=== PATIENT | female | born 1960 | race Caucasian/White ===

== ENCOUNTER → 2016-09-06 | Outpatient (CLI) | payer OTHER ==
--- NOTE | 2016-09-06 17:21 | RADRPT ---
PROCEDURE: Swallow evaluation CLINICAL INDICATION: Food getting stuck. Difficulty breathing while eating. TECHNIQUE: The patient was given multiple consistencies of barium to drink by the speech therapist . Multiple fluoroscopic spot images were obtained. Total fluoroscopic time was 1.3 min. COMPARISON: No prior exam is available for comparison. FINDINGS: Given nectar thick liquids, thin liquids, puree, mechanical soft, and regular, no penetration/aspira tion noted on this study. IMPRESSION: 1. No penetration or aspiration identified. 2. Please see the speech therapy note for further details. RPTAT: QQ .Venkata Martínez MD, MD Date Time Electronically viewed and signed by .Venkata Martínez MD, on 09/06/2016 17:21 .d/
== END | disposition home or self-care (01) ==
LOC: RAD 12:27
PROVIDERS: ATTEND Otolaryngology
DX: R13.10 Dysphagia, unspecified (principal)
CPT/HCPCS: 74230; 92611

== ENCOUNTER 2018-04-14 11:49 | Emergency (ER) | END 2018-04-14 15:48 | disposition home or self-care (01) ==

== ENCOUNTER 2018-12-16 22:09 | Emergency (ER) | payer OTHER ==
[~2018-12-16] VITALS: Ht 154.9 cm; Wt 59.5 kg
[~2018-12-16 22:09] MED LIST: BEN25 PO; ERYT1OIN6 LEFT EYE
[2018-12-16 22:15] VITALS: Ht 154.9 cm; Wt 59.5 kg
[2018-12-17 00:36] VITALS: BP 175/92; PULSE 60; RESP 16
== END 2018-12-17 00:36 | disposition home or self-care (01) ==
LOC: FTE 22:09
DX: H00.019 Hordeolum externum unspecified eye, unspecified eyelid (principal)
CPT/HCPCS: 99283